=== PATIENT | male | born 1945 | race Caucasian/White ===

== ENCOUNTER → 2020-05-22 | Outpatient (CLI) | payer MEDICARE, OTHER ==
[~2020-05-22] MED LIST: ALBU90OI INH; ALBUTEROL NEB; AZIT250 PO; BUDE10.22 INH; FISH1000 PO; LAVAP17G PO; MELO7.5 PO; MULTI VITAMIN1 EACH PO; NUTRISOURCE FIBE4 GM PO; OXYACE5T PO; PRED10 PO; TIOT18 INH; TRAM50 PO; TRAZ100 PO; VENL75ER PO
[2020-05-22 14:06] LABS: Stool Occult Bld Immuno 1 Negative (NEGATIVE)
== END | disposition home or self-care (01) ==
LOC: LAB 08:00 → LAB SHORT 08:00
PROVIDERS: Hospitalist
DX: Z12.11 Encounter for screening for malignant neoplasm of colon (principal)
CPT/HCPCS: G0328

== ENCOUNTER 2021-07-27 07:25 | Inpatient (IN) | payer MEDICARE, OTHER ==
[~2021-07-27] VITALS: Ht 175.3 cm; Wt 65.8 kg
[2021-07-27 07:57] LABS: BASOPHILS ABSOLUTE AUTO 0.04 K/mm3 (0.00-0.23); BASOPHILS PERCENT AUTO 0 % (0-2); EOSINOPHILS ABSOLUTE AUTO 0.21 K/mm3 (0.00-0.68); EOSINOPHILS PERCENT AUTO 2 % (0-6); Hematocrit 38.1 % (37.0-53.0); Hemoglobin 12.4 g/dL (13.5-17.5); IMMATURE GRAN ABSOLUTE AUTO 0.04 K/mm3 (0.00-0.10); IMMATURE GRAN PERCENT AUTO 0 % (0-1); LYMPHOCYTES ABSOLUTE AUTO 1.41 K/mm3 (0.84-5.20); LYMPHOCYTES PERCENT AUTO 12 % (21-46); MONOCYTES ABSOLUTE AUTO 0.71 K/mm3 (0.16-1.47); MONOCYTES PERCENT AUTO 6 % (4-13); Mean Corpuscular HGB 29.7 pg (26.0-34.0); Mean Corpuscular HGB Conc 32.5 g/dL (31.5-36.5); Mean Corpuscular Volume 91 fL (80-100); Mean Platelet Volume 9.6 fL (9.1-12.4); NEUTROPHILS ABSOLUTE AUTO 9.85 K/mm3 (1.96-9.15); NEUTROPHILS PERCENT AUTO 80 % (41-73); Platelet Count 384 K/mm3 (150-400); RDW Coefficient Variation 12.9 % (11.7-14.2); RDW Standard Deviation 43.2 fL (35.1-46.3); Red Blood Cell Count 4.17 M/mm3 (4.30-5.90); White Blood Cell Count 12.26 K/mm3 (4.00-11.30)
[2021-07-27 08:14] LABS: Alanine Aminotransfer (ALT/SGP 31 U/L (12-78); Albumin, Blood 3.4 g/dL (3.4-5.0); Albumin/Globulin Ratio 0.9 (0.8-1.8); Alk Phos 73 U/L (50-136); Anion Gap 5 mmol/L (6-16); Aspartate Aminotrans (AST/SGOT 28 U/L (12-37); Bilirubin, Total 0.6 mg/dL (0.1-1.0); Blood Urea Nitrogen 22 mg/dL (8-24); Bun/Creatinine Ratio 38.9 (12.0-20.0); CO2, Blood 29 mmol/L (21-32); Calcium, Blood 8.8 mg/dL (8.5-10.1); Chloride, Blood 107 mmol/L (98-108); Creatinine, Blood 0.57 mg/dL (0.60-1.20); Globulin, Blood 3.9 g/dL (2.2-4.0); Glomerular Filtration Rate >60 (60-); Glucose, Blood 152 mg/dL (70-99); Potassium, Blood 3.8 mmol/L (3.5-5.5); Sodium, Blood 141 mmol/L (136-145); Total Protein, Blood 7.3 g/dL (6.4-8.2)
--- NOTE | 2021-07-27 13:19 | NUR ---
ARRIVED FROM ED VIA GURNEY, TRANSFERRED TO BED W/ STANDBY ASSIST, DENIES ANY SOB, C/O MILD PAIN AT CHEST TUBE SITE, NO AIR LEAK NOTED IN PLEURA VAC, ORIENTED TO ROOM AND CALL LIGHT, PT IS VERY HO-CHUNK, AT BEDSIDE, REQUESTED PAIN MED ORDER FROM DR. MACE, CONT. TO MONITOR FOR ANY CHANGES.
--- NOTE | 2021-07-27 17:49 | NUR ---
SUMMARY PT HAS DENIED ANY SOB, CHEST TUBE INTACT TO WALL SUCTION, DENIES ANY PAIN, TOLERATING REGULAR DIET WELL, DR. MACE SAW PT THIS AFTERNOON, NO ACUTE CHANGES THIS SHIFT.
[2021-07-28 04:38] LABS: BASOPHILS ABSOLUTE AUTO 0.01 K/mm3 (0.00-0.23); BASOPHILS PERCENT AUTO 0 % (0-2); EOSINOPHILS PERCENT AUTO 0 % (0-6); Hematocrit 32.9 % (37.0-53.0); Hemoglobin 10.6 g/dL (13.5-17.5); IMMATURE GRAN ABSOLUTE AUTO 0.13 K/mm3 (0.00-0.10); IMMATURE GRAN PERCENT AUTO 1 % (0-1); LYMPHOCYTES PERCENT AUTO 8 % (21-46); MONOCYTES ABSOLUTE AUTO 1.15 K/mm3 (0.16-1.47); MONOCYTES PERCENT AUTO 7 % (4-13); Mean Corpuscular HGB 29.1 pg (26.0-34.0); Mean Corpuscular HGB Conc 32.2 g/dL (31.5-36.5); Mean Corpuscular Volume 90 fL (80-100); Mean Platelet Volume 9.8 fL (9.1-12.4); NEUTROPHILS ABSOLUTE AUTO 13.85 K/mm3 (1.96-9.15); NEUTROPHILS PERCENT AUTO 84 % (41-73); Platelet Count 313 K/mm3 (150-400); RDW Coefficient Variation 12.9 % (11.7-14.2); RDW Standard Deviation 42.9 fL (35.1-46.3); Red Blood Cell Count 3.64 M/mm3 (4.30-5.90); White Blood Cell Count 16.44 K/mm3 (4.00-11.30)
[2021-07-28 05:00] LABS: Albumin, Blood 2.8 g/dL (3.4-5.0); Anion Gap 5 mmol/L (6-16); Blood Urea Nitrogen 21 mg/dL (8-24); Bun/Creatinine Ratio 34.7 (12.0-20.0); CO2, Blood 28 mmol/L (21-32); Calcium, Blood 8.6 mg/dL (8.5-10.1); Chloride, Blood 108 mmol/L (98-108); Creatinine, Blood 0.61 mg/dL (0.60-1.20); Glomerular Filtration Rate >60 (60-); Glucose, Blood 124 mg/dL (70-99); Magnesium, Blood 1.9 mg/dL (1.6-2.4); Phosphorus, Blood 3.3 mg/dL (2.5-4.9); Potassium, Blood 3.9 mmol/L (3.5-5.5); Sodium, Blood 141 mmol/L (136-145)
--- NOTE | 2021-07-28 06:17 | NUR ---
PT LYING ON BACK, APPEARS TO BE SLEEPING. RESP E/U, SATS >92% ON 4L PER BASELINE. HR SINUS TACH 90-1'TEENS PER TELE MONITOR. CT TO WALL SX, NO LEAKS NOTED, SMALL AMT LIGHT PINK SS DRNG NOTED IN TUBE. SITE WNL, NO CREPITUS NOTED. PT MED FOR PAIN X1 W/REP RELIEF.
[2021-07-28] MEDS ORDERED: MIRT30 PO (13:47)
[2021-07-28] MEDS ORDERED: ROFL500T (13:47)
[2021-07-28] MEDS ORDERED: DULO30 PO (13:47)
[2021-07-28] MEDS ORDERED: ANORO ELLIPTA1 EAC1 IH (13:51)
[2021-07-28] MEDS ORDERED: BUDESONIDE1 MG/2 M1 INH (13:51)
[2021-07-28] MEDS ORDERED: 1/2 NS 250ml250 ML (13:52)
[2021-07-28] MEDS ORDERED: ARFORMOTER15 MCG/2 M INH (13:52)
--- NOTE | 2021-07-28 17:28 | NUR ---
SHIFT SUMMARY A&O X4, VSS, O2 SATS MAINTAINING >88% ON 4L VIA NC. LUNG SOUNDS REMAIN DIMINISHED T/O R SIDE. CHEST TUBE IN PLACE WITH STITCHES & TEGADERM. NO ACUTE CHANGES T/O SHIFT. PT RESTING IN BED W/ AT BEDSIDE. WILL REPORT TO ONCOMING RN.
--- NOTE | 2021-07-29 01:46 | NUR ---
SHIFT SUMMARY: PT. AOX4, ABLE TO MAKE NEEDS KNOWN, V/S STABLE, CHEST TUBE INTACT WITH STITCHES & TEGADERM, TO LOW WALL SUCTION. VOIDING WELL VIA THE URINAL WITH YELLOW URINE. DENIES PAIN.SLEEPING WELL T/O THE NIGHT. REPOSITIONS SELF, ROUNDING PER PROTOCOL. NO S/S OF RESP/CV DISTRESS NOTED.
--- NOTE | 2021-07-29 17:05 | NUR ---
SHIFT SUMAMRY A&O X4, VSS, O2 REMAINS >88% ON 3L WITH OXIMIZER IN PLACE. CHEST TUBE STILL IN PLACE TO R ANT CHEST D/T PNEUMOTHORAX, SITE IS WNL. PT DENIES DIFFICULTY BREATHING/SOB. REPORTS PAIN TO R UPPER BACK BUT TOLERABLE AND HAS DENIED NEED FOR PAIN MEDICATION T/O SHIFT. RESTING QUIETLY IN BED, [place] [facility] [place] 1P ASSIST D/T LINES, USES CALL LIGHT APPROP. WILL REPORT TO ONCOMING RN.
--- NOTE | 2021-07-29 18:41 | NUR ---
DR. MACE NOTIFED THIS RN THAT A [place]IMLICH VALVE WILL BE PLACED AND THE PATIENT WILL DISCHARGE TOMORROW. HE WILL THEN FOLLOW UP WITH [facility] FOR REMOVAL.
[2021-07-29 20:55] LABS: Influenza A, PCR NEGATIVE (NEGATIVE); Influenza B, PCR NEGATIVE (NEGATIVE); Resp Syncytial Virus, PCR NEGATIVE (NEGATIVE); SARS-Cov-2 (COVID-19) PCR, MMC NEGATIVE (NEGATIVE)
--- NOTE | 2021-07-30 06:08 | NUR ---
SUMMARY NO ISSUES NOTED WITH CLAMPED NCX TUBE. PT CX DRESSING IS CLEAN AND INTACT. PT LS HAVE BEEN CLEAR AND DENIES SOB. PT REMAINS ON O2 VIA NC. PT DENIES CX PAIN AND HAS BEEN COMFORTABLE. PT HAS BEEN VOIDING WELL DURING SHIFT. PT SLEPT WELL AND IS CURRENTLY SLEEPING IN NO DISTRESS. CALL LIGHT IN REACH.
[2021-07-30] MEDS ORDERED: METCAR750 PO (15:09)
--- NOTE | 2021-07-30 17:41 | NUR ---
Per Dr. Zhanna Mendoza discharge appropriate. Patient does not oppose discharge. Patient is discharged home. Patient's residence: [address] [place] [address] Date of discharge: 07/30/2021 Date of admission: 07/27/2021 Transportation provided by: Significant other [facility] [phone] DME Ordered: None ordered/patient uses Oxygen set-up at residence Follow-ups needed: [facility] will contact patient to schedule hospital follow-up with PCP. Reinforced importance of follow-up appointments with telehealth as an option. Provider/PCP: Dr. Clifford Johnson Confirmed numbers: Patient [phone] [facility] [phone] (patient prefers [facility], [facility] to handle medical calls). Comment: Patient to contact PCP with any questions regarding medication management, social service needs, and if condition worsens go to Urgent Care/ER. No barriers to discharge on this date.
--- NOTE | 2021-07-30 18:54 | NUR ---
DISCHARGE SUMMARY CHEST TUBE IN PLACE, HIEMLICH VALVE PLACED BY GENERAL SURGEON, VSS, A/O X4, PRESENT DURING DISCHARGE INSTRUCTIONS WHICH WERE GIVEN BY DR. MACE VIA TELEPHONE. FOLLOW UP WITH CARDIOTHORACIC SURGEON IN [place] FOR CONSULTATION IN WHICH CONTACT INFORMATION WAS PROVIDED. ABD BINDER PROVIDED TO HELP SECURE HIEMLICH VALVE WHILE SLEEPING, PT AND EDUCATED ON PLACEMENT. DISCUSSED HOME CARE FOR CHEST TUBE/HIEMLICH VALVE AND GAVE SURGICAL FLOOR CONTACT AND PRIMARY CARE CONTACT SHOULD ANY QUESTIONS ARISE AFTER DISCHARGE. IV ACCESS REMOVED PRIOR TO DISCHARGE AND NO OTHER DEVICES IN PLACE. PATIENT DRESSED IN HIS HOME CLOTHES AND ESCORTED OUT BY STAFF TO HIS PRIVATE AUTO WITH ALL PERSONAL POSSESSIONS. PT STABLE AND ON HOME O2 AT TIME OF DISCHARGE. MEDICATIONS FAXED TO PREFERRED PHARMACY LISTED ([facility]) TO BE PICKED UP BY PATIENT AT THEIR CONVENIENCE.
== END 2021-07-30 18:07 | disposition home or self-care (01) | DRG 199 ==
LOC: ER 07:25 → MEDS 11:21 → SURS 12:00
PROVIDERS: Anesthesiology; ADMIT Family Medicine
PROC: 0W9930Z Drainage of Right Pleural Cavity with Drainage Device, Percutaneous Approach (ICD-10-PCS; principal; 2021-07-27)
DX: J93.83 Other pneumothorax (principal); J96.21 Acute and chronic respiratory failure with hypoxia; J43.9 Emphysema, unspecified; Z20.822 Contact with and (suspected) exposure to COVID-19; Z66 Do not resuscitate; E78.5 Hyperlipidemia, unspecified; I10 Essential (primary) hypertension; K21.9 Gastro-esophageal reflux disease without esophagitis; R91.1 Solitary pulmonary nodule; D64.9 Anemia, unspecified; F41.9 Anxiety disorder, unspecified; F32.A Depression, unspecified; Z85.46 Personal history of malignant neoplasm of prostate; Z90.79 Acquired absence of other genital organ(s); Z98.890 Other specified postprocedural states; Z90.49 Acquired absence of other specified parts of digestive tract; Z79.51 Long term (current) use of inhaled steroids; Z79.899 Other long term (current) drug therapy
CPT/HCPCS: 0241U; 32551; 36415; 71045; 71250; 80053; 80069; 83735; 83880; 84484; 85025; 93005; 93010; 94640; 94664; 94762; 96372; 96374; 99285-25; A9270; J1650; J3010; J7120; J7512

== ENCOUNTER 2022-11-29 12:21 | Emergency (ER) | payer MEDICARE, OTHER ==
[~2022-11-29] VITALS: Ht 175.3 cm; Wt 68.0 kg
[~2022-11-29 12:21] MED LIST changes: +1/2 NS 250ml250 ML; +ANORO ELLIPTA1 EAC1 IH; +ARFORMOTER15 MCG/2 M INH; +BUDESONIDE1 MG/2 M1 INH; +DULO30 PO; +METCAR750 PO; +MIRT30 PO; +ROFL500T PO
[2022-11-29 12:50] LABS: BASOPHILS ABSOLUTE AUTO 0.03 K/mm3 (0.00-0.23); BASOPHILS PERCENT AUTO 0 % (0-2); EOSINOPHILS ABSOLUTE AUTO 0.04 K/mm3 (0.00-0.68); EOSINOPHILS PERCENT AUTO 0 % (0-6); Hematocrit 41.7 % (37.0-53.0); Hemoglobin 14.3 g/dL (13.5-17.5); IMMATURE GRAN ABSOLUTE AUTO 0.03 K/mm3 (0.00-0.10); IMMATURE GRAN PERCENT AUTO 0 % (0-1); LYMPHOCYTES ABSOLUTE AUTO 1.25 K/mm3 (0.84-5.20); LYMPHOCYTES PERCENT AUTO 11 % (21-46); MONOCYTES ABSOLUTE AUTO 0.84 K/mm3 (0.16-1.47); MONOCYTES PERCENT AUTO 7 % (4-13); Mean Corpuscular HGB Conc 34.3 g/dL (31.5-36.5); Mean Corpuscular Volume 91 fL (80-100); Mean Platelet Volume 9.6 fL (9.1-12.4); NEUTROPHILS ABSOLUTE AUTO 9.35 K/mm3 (1.96-9.15); NEUTROPHILS PERCENT AUTO 81 % (41-73); Platelet Count 368 K/mm3 (150-400); RDW Coefficient Variation 12.5 % (11.7-14.2); RDW Standard Deviation 40.6 fL (35.1-46.3); Red Blood Cell Count 4.61 M/mm3 (4.30-5.90); White Blood Cell Count 11.54 K/mm3 (4.00-11.30)
[2022-11-29 13:32] LABS: Albumin, Blood 4.1 g/dL (3.4-5.0); Albumin/Globulin Ratio 1.1 (0.8-1.8); Bilirubin, Total 1.3 mg/dL (0.1-1.0); Calcium, Blood 9.6 mg/dL (8.5-10.1); Creatinine, Blood 0.61 mg/dL (0.60-1.20); Globulin, Blood 3.8 g/dL (2.2-4.0); Potassium, Blood 3.7 mmol/L (3.5-5.5); Total Protein, Blood 7.9 g/dL (6.4-8.2)
[2022-11-29 19:45] VITALS: BP 122/57
[2022-11-29] MEDS ORDERED: AMOCLA875 PO (19:51)
[2022-11-29] MEDS ORDERED: PRED20 PO (19:51)
== END 2022-11-29 20:21 | disposition home or self-care (01) ==
LOC: ER 12:21
PROVIDERS: Student in an Organized Health Care Education/Training Program
DX: J44.1 Chronic obstructive pulmonary disease with (acute) exacerbation (principal); Z79.899 Other long term (current) drug therapy; E78.5 Hyperlipidemia, unspecified; I10 Essential (primary) hypertension; K21.9 Gastro-esophageal reflux disease without esophagitis; Z87.891 Personal history of nicotine dependence
CPT/HCPCS: 71046; 71260; 80053; 83880; 84484; 85025; 85379; 93005; 93010; 94640; 94644; 94664; 99284-25; A9270; J7512; Q9967

== ENCOUNTER 2024-08-08 19:31 | Emergency (ER) | payer MEDICARE, OTHER ==
[~2024-08-08] VITALS: Ht 175.3 cm; Wt 58.1 kg
[~2024-08-08 19:31] MED LIST changes: +AMOCLA875 PO; +PRED20 PO
[2024-08-08] MEDS ORDERED: Ipratropium/Albuterol SulF 2.5-0.5MG/3 ML Amp INH ONE ×2 (19:45→20:00)
[2024-08-08] MEDS ORDERED: MethylPREDNISolone Sod Succ 125 MG Vial IV ONE ×2 (19:45→20:00)
[2024-08-08 19:59] LABS: Base Excess Venous 4.3 mmol/L; PCO2 Venous 40.1 mmHg (38-42); pH Blood Venous 7.46 (7.34-7.37)
[2024-08-08] MEDS ORDERED: Albuterol 2.5 MG/3 ML VIAL INH SCH (20:00)
[2024-08-08] MEDS ORDERED: Doxycycline Hyclate 100 MG in Dextrose 5% 250 ML IV ONE (20:05)
[2024-08-08 20:18] LABS: BASOPHILS ABSOLUTE AUTO 0.05 K/mm3 (0.00-0.23); BASOPHILS PERCENT AUTO 1 % (0-2); EOSINOPHILS ABSOLUTE AUTO 0.25 K/mm3 (0.00-0.68); EOSINOPHILS PERCENT AUTO 3 % (0-6); Hematocrit 36.4 % (37.0-53.0); Hemoglobin 12.2 g/dL (13.5-17.5); IMMATURE GRAN ABSOLUTE AUTO 0.02 K/mm3 (0.00-0.10); IMMATURE GRAN PERCENT AUTO 0 % (0-1); LYMPHOCYTES ABSOLUTE AUTO 1.95 K/mm3 (0.84-5.20); LYMPHOCYTES PERCENT AUTO 22 % (21-46); MONOCYTES PERCENT AUTO 10 % (4-13); Mean Corpuscular HGB 30.7 pg (26.0-34.0); Mean Corpuscular HGB Conc 33.5 g/dL (31.5-36.5); Mean Corpuscular Volume 92 fL (80-100); Mean Platelet Volume 9.8 fL (9.1-12.4); NEUTROPHILS ABSOLUTE AUTO 5.62 K/mm3 (1.96-9.15); NEUTROPHILS PERCENT AUTO 64 % (41-73); Platelet Count 299 K/mm3 (150-400); RDW Coefficient Variation 12.1 % (11.7-14.2); RDW Standard Deviation 41.1 fL (35.1-46.3); Red Blood Cell Count 3.98 M/mm3 (4.30-5.90); White Blood Cell Count 8.79 K/mm3 (4.00-11.30)
[2024-08-08 20:44] LABS: Albumin, Blood 3.9 g/dL (3.4-5.0); Albumin/Globulin Ratio 1.2 (0.8-1.8); Bilirubin, Total 0.6 mg/dL (0.1-1.0); Bun/Creatinine Ratio 38.3 (12.0-20.0); Calcium, Blood 9.1 mg/dL (8.5-10.1); Creatinine, Blood 0.63 mg/dL (0.60-1.20); Globulin, Blood 3.3 g/dL (2.2-4.0); Potassium, Blood 3.8 mmol/L (3.5-5.5); Total Protein, Blood 7.2 g/dL (6.4-8.2)
[2024-08-08] MEDS ORDERED: ALPRAZolam 0.25 MG Tab PO ONE (21:35)
[2024-08-08 22:00] VITALS: BP 120/67
[2024-08-08] MEDS ORDERED: DOXY100 PO (22:43)
[2024-08-08] MEDS ORDERED: PRED20 PO (22:43)
[2024-08-08] MEDS ORDERED: HYDHCL25 PO (22:43)
== END 2024-08-08 22:51 | disposition home or self-care (01) ==
LOC: ER 19:31
PROVIDERS: Student in an Organized Health Care Education/Training Program
DX: J44.1 Chronic obstructive pulmonary disease with (acute) exacerbation (principal); J96.11 Chronic respiratory failure with hypoxia; F41.9 Anxiety disorder, unspecified; K21.9 Gastro-esophageal reflux disease without esophagitis; E78.5 Hyperlipidemia, unspecified; I10 Essential (primary) hypertension; Z86.79 Personal history of other diseases of the circulatory system; Z86.59 Personal history of other mental and behavioral disorders; Z87.891 Personal history of nicotine dependence; Z79.52 Long term (current) use of systemic steroids; Z79.51 Long term (current) use of inhaled steroids; Z79.899 Other long term (current) drug therapy
CPT/HCPCS: 71045; 80053; 82803; 84484; 85025; 93005; 93010; 94644; 94664; 96365; 96366; 96375; 99285-25; A9270; J2919; J7060